=== PATIENT | male | born 1980 | race Caucasian/White ===

== ENCOUNTER 2021-12-23 22:18 | Emergency (ER) | payer MEDICAID, SELFPAY ==
[2021-12-23 22:43] VITALS: BP 165/89; PULSE 76; RESP 20; TEMP 36.7; O2SAT 99; BMI 40.3
[2021-12-24 00:51] LABS: Basophils # 0.1 10^3/uL (0.0-0.1); Basophils % 0.6 %; Eosinophils # 0.4 10^3/uL (0.0-0.8); Hematocrit 47.3 % (42.0-52.0); Hemoglobin 16.5 g/dL (11.7-16.6); Lymphocytes # 3.2 10^3/uL (0.8-4.8); Lymphocytes % 31.4 %; Mean Corpuscular HGB Conc 34.9 g/dL (30.0-36.0); Mean Corpuscular Volume 97.5 fl (80-94); Mean Platelet Volume 9.8 fL (7.4-10.4); Monocytes # 0.8 10^3/uL (0.2-0.9); Monocytes % 7.9 %; Neutrophils # 5.75 10^3/uL (1.8-7.7); Neutrophils % 55.9 %; Nucleated Red Blood Cells % 0 %; Platelet Count 205 10^3/cmm (130-400); Red Blood Count 4.85 10^6/uL (4.1-5.3); Red Cell Distribution Width 12.1 % (12.1-15.1); White Blood Count 10.3 10^3/uL (4.0-10.0)
--- NOTE | 2021-12-24 00:57 | ED_ITS ---
HPI - Abdominal Pain General: Chief Complaint: Abdominal Pain Stated Complaint: Sharp Pain Rt ABD Time Seen by Provider: 12/24/21 00:19 Source: patient Mode of arrival: ambulatory Limitations: no limitations History of Present Illness: Patient is a 41-year-old male who presents to ED today with a complaint of 2 episodes of left abdominal pain that have occurred throughout the day. Patient tells me the first episode was earlier this morning after he drank an espresso. He states he had fairly significant left-sided abdominal pains and severe nausea which caused him to vomit the espresso. He states pain lasted approximately 20 to 30 minutes and subsided on its own. Patient states he decided to lay down and rest. He states he then got up and got moving and decided to drink another espresso and following this had another episode of left abdominal pains again lasting 20 to 30 minutes. Patient is not currently having any discomfort. He reports he had a normal bowel movement today. He is passing flatulence normal. No fevers. No urinary complaints. No back pain. MD elicited complaint: abdominal pain Onset (ago): hour(s) Pain Consistency: now resolved Location: LUQ and LLQ Radiation: none Migration to: no migration Relieving factors: nothing Associated Symptoms: Reports nausea and vomiting; Denies change in bowel habits, change in stool character, chills, coffee ground emesis, diarrhea, dysuria, fever(s), heartburn, hematochezia, hematuria, hematemesis, melena and syncope Review of Systems Const: Denies: fever(s), chills, body aches, fatigue or malaise Eyes: Denies: change in vision ENMT: Denies: throat pain Card: Denies: chest pain, palpitations, irregular heart rhythm, edema, ligh theadedness, syncope or pre-syncope Resp: Denies: dyspnea or pain on inspiration GI: Reports: abdominal pain, nausea and vomiting; Denies: hematemesis, coffee ground emesis, heartburn, diarrhea, change in bowel habits, pain on defecation, change in stool character, hematochezia or melena : Denies: flank pain, dysuria or hematuria Musc: Denies: neck pain, back pain, extremity pain or joint pain Skin/Breast: Denies: rash Neuro: Denies: headache(s), numbness in extremities, weakness in extremities, sensory changes, difficulty walking or dizziness Physical Exam Const: COMMON NORMALS: no acute distress, patient oriented x3, no limitations and alert GENERAL APPEARANCE: cooperative NUTRITIONAL APPEARANCE: obese ORIENTATION/CONSCIOUSNESS: Yes awake, Yes oriented to person, Yes oriented to place and Yes oriented to time HENMT: COMMON NORMALS: normocephalic and atraumatic HEAD & SCALP: normocephalic and atraumatic Resp: COMMON NORMALS: normal respiratory effort and clear to auscultation bilaterally AUSCULTATION: clear to auscultation bilaterally Cardio: COMMON NORMALS: regular rate and regular rhythm RATE: regular rate RHYTHM: regular rhythm GI: COMMON NORMALS: Normal to inspection, nondistended, normoactive bowel sounds present, Soft to palpation, non-tender and no masses INSPECTION: Yes normal to inspection AUSCULTATION: Yes normoactive bowel sounds PALPATION: Yes Soft to palpation : COMMON NORMALS: Yes no CVA tenderness BLADDER/KIDNEY EXAM: Yes no CVA tenderness Back/Pelvis: COMMON NORMALS: no CVA tenderness, thoracic and lumbar spine normal to inspection, no thoracic nor lumbar tenderness and thoraco-lumbar ROM normal Extremity: COMMON NORMALS: normal to inspection GENERAL: Yes normal exam e xcept as noted Neuro: EVERARDO COMA SCALE: document GCS findings Preston coma scale eye opening: Spontaneous Preston coma scale verbal response: Orientated Everardo coma scale motor response: Obey commands Preston coma scale total score: 15 COMMON NORMALS: patient oriented x3, moves all extremities, no focal motor deficits, no sensory deficits noted and gait normal SENSORIUM/ORIENTATION: Yes alert, Yes oriented to person, Yes oriented to place and Yes oriented to time Skin: COMMON NORMALS: no rashes or lesions noted GENERAL SKIN EXAM: no rashes or lesions noted Course Vital Signs: Vital signs: Vital Signs Temperature 98.0 F 12/23/21 22:43 Pulse Rate 76 12/23/21 22:43 Respiratory Rate 20 H 12/23/21 22:43 Blood Pressure 165/89 12/23/21 22:43 Pulse Oximetry 99 12/23/21 22:43 MDM - Abdominal Pain Medical Decision Making Patient currently appears in no acute distress. His vital signs are normal. He has no abdominal tenderness on his exam currently. He states he has not had any further episodes of abdominal discomfort while here he has been completely asymptomatic. Blood work overall is fairly unremarkable. He does have a mildly elevated lipase (90) of uncertain significance. At this time due to lack of current symptoms I do not feel like we need to proceed with emergent CT imaging. I did recommend to go ahead and attempting bland liquid diet over the next 48 hours and advance as tolerated. Patient was given strict return to ED precautions. Patient was not able to give UA sample however does not complain of any urinary complaints at this time. Lab Data : 12/24/21 00:42 12/24/21 00:42 Labs/Radiology: Laboratory Results WBC 10.3 10^3/uL (4.0-10.0) H 12/24/21 00:42 RBC 4.85 10^6/uL (4.1-5.3) 12/24/21 00:42 Hgb 16.5 g/dL (11.7-16.6) 12/24/21 00:42 Hct 47.3 % (42.0-52.0) 12/24/21 00:42 MCV 97.5 fl (80-94) H 12/24/21 00:42 MCH 34.0 pg (28.0-34.0) 12/24/21 00:42 MCHC 34.9 g/dL (30.0-36.0) 12/24/21 00:42 RDW 12.1 % (12.1-15.1) 12/24/21 00:42 Plt Count 205 10^3/cmm (130-400) 12/24/21 00:42 MPV 9.8 fL (7.4-10.4) 12/24/21 00:42 Neut % (Auto) 55.9 % 12/24/21 00:42 Lymph % (Auto) 31.4 % 12/24/21 00:42 [place] % (Auto) 7.9 % 12/24/21 00:42 Eos % (Auto) 4.0 % 12/24/21 00:42 Baso % (Auto) 0.6 % 12/24/21 00:42 Neut # (Auto) 5.75 10^3/uL (1.8-7.7) 12/24/21 00:42 Lymph # (Auto) 3.2 10^3/uL (0.8-4.8) 12/24/21 00:42 [place] # (Auto) 0.8 10^3/uL (0.2-0.9) 12/24/21 00:42 Eos # (Auto) 0.4 10^3/uL (0.0-0.8) 12/24/21 00:42 Baso # (Auto) 0.1 10^3/uL (0.0-0.1) 12/24/21 00:42 Nucleated RBC % (auto) 0 % 12/24/21 00: Nucleated RBCs # 0.0 /100WBC 12/24/21 00:42 Sodium 143 mmol/L (136-145) 12/24/21 00:42 Potassium 4.2 mmol/L (3.5-5.1) 12/24/21 00:42 Chloride 109 mmol/L (98-107) H 12/24/21 00:42 Carbon Dioxide 25 mmol/L (22-29) 12/24/21 00:42 Anion Gap 13.2 (5-19) 12/24/21 00:42 BUN 12 mg/dL (6-20) 12/24/21 00:42 Creatinine 0.6 mg/dL (0.7-1.2) L 12/24/21 00:42 GFR Calculation 148.5 mL/min (90-130) H 12/24/21 00:42 Glucose 115 mg/dL (65-115) 12/24/21 00:42 Calculated Osmolality 297 mOsm/kg (285-295) H 12/24/21 00:42 Calcium 9.3 mg/dL (8.5-10.5) 12/24/21 00:42 Total Bilirubin 0.5 mg/dL (0.15-1.2) 12/24/21 00:42 AST 14 U/L (0-40) 12/24/21 00:42 ALT 21 U/L (0-41) 12/24/21 00:42 Alkaline Phosphatase 91 IU/L (40-130) 12/24/21 00:42 Total Protein 5.8 g/dL (6.6-8.7) L 12/24/21 00:42 Albumin 4.0 g/dL (3.5-5.2) 12/24/21 00:42 Globulin 1.8 g/dL (1.3-4.6) 12/24/21 00:42 Lipase 90 U/L (13-60) H 12/24/21 00:42 Discharge Plan Discharge Patient Disposition: Home Clinical Impression: Resolved abdominal pain, Elevated lipase Condition: Stable Discharge Orders: Discharge ED (Routine); Ordered 12/24/21 Ordered By: Felicia Borrego Referrals: Nick Addison MD [Primary Care Provider] - Activity Restrictions/Additional Instructions: As we discussed I recommend a bland liquid diet over the next 48 hours and slowly advancing as tolerated. You need to return to the emergency department for onset of severe, constant abdominal pains, repetitive episodes of vomiting or diarrhea, blood in your vomit or stool, fevers greater than 100.4, yellowing of your skin or eyes, severe flank pain, inability to urinate, bloody urine, chest pain or shortness of breath, or any other concerns you may have. I hope you begin to feel better soon. Coding Level of Care Code ED Rehab/Pre Vocational Counselor for Daving Fwd Exam Comprehensive
[2021-12-24 01:13] LABS: Alanine Aminotransferase 21 U/L (0-41); Alkaline Phosphatase 91 IU/L (40-130); Anion Gap 13.2 (5-19); Aspartate Amino Transferase 14 U/L (0-40); Blood Urea Nitrogen 12 mg/dL (6-20); Calcium 9.3 mg/dL (8.5-10.5); Carbon Dioxide 25 mmol/L (22-29); Chloride 109 mmol/L (98-107); Globulin 1.8 g/dL (1.3-4.6); Glomerular Filtration Rate 148.5 mL/min (90-130); Glucose 115 mg/dL (65-115); Lipase 90 U/L (13-60); Osmolality Calculated 297 mOsm/kg (285-295); Potassium 4.2 mmol/L (3.5-5.1); Sodium 143 mmol/L (136-145); Total Bilirubin 0.5 mg/dL (0.15-1.2); Total Protein 5.8 g/dL (6.6-8.7)
== END 2021-12-24 01:50 | disposition home or self-care (01) ==
PROVIDERS: Emergency Medicine; Emergency Provider Physician Assistant; PCP Specialist
DX: R10.9 Unspecified abdominal pain (principal); E78.41 Elevated Lipoprotein(a)
CPT/HCPCS: 80053; 83690; 85025; 99283